=== PATIENT | male | born 1955 | race Caucasian/White ===

== ENCOUNTER 2024-03-11 12:24 | Inpatient (IN) ==
[2024-03-11 13:07] LABS: ABS Basophils 0.1 10^3/uL (0.0-0.1); ABS Eosinophils 0.5 10^3/uL (0.0-0.5); ABS Lymphocytes 1.1 10^3/uL (1.0-4.8); ABS Monocytes 0.4 10^3/uL (0.0-1.1); ABS Neutrophils 7.1 10^3/uL (1.5-7.6); ABS Nucleated RBC 0.01 10^3/ul; Eosinophil % 5.8 %; Hematocrit 33.3 % (38-53); Hemoglobin 11.3 g/dL (13.2-16.3); Lymphocyte % 11.6 %; Mean Corpuscular Hemoglobin 31.7 pg (27-33); Mean Corpuscular Hgb Conc 33.9 g/dL (31-36); Mean Corpuscular Volume 93.5 fL (80-97); Nucleated Red Blood Cells % 0.1 %/100WBC (0.0-0.8); Platelet Count 172 10^3/uL (150-450); Red Blood Count 3.56 10^6/uL (4.06-5.63); Red Cell Distribution Width 14.8 % (12-17); White Blood Count 9.2 10^3/uL (3.6-10.2)
[2024-03-11 13:52] LABS: High Sens Troponin Baseline 109 pg/mL (<20)
[2024-03-11 14:06] LABS: ALT 18 U/L (7-52); Albumin 4.3 g/dL (3.2-5.2); Albumin/Globulin Ratio 1.5 (1-3); Alkaline Phosphatase 94 U/L (35-149); Blood Urea Nitrogen 57 mg/dL (6-24); C Reactive Protein 2.64 mg/L (<8.01); CO2 Carbon Dioxide 17 mmol/L (22-32); Calcium 8.6 mg/dL (8.6-10.3); Chloride 109 mmol/L (101-111); Creatinine, Serum 2.83 mg/dL (0.67-1.17); Globulin 2.8 g/dL (2-4); Glucose 261 mg/dL (70-100); Sodium 136 mmol/L (135-145); Total Bilirubin 0.7 mg/dL (0.2-1.0); Total Protein 7.1 g/dL (6.4-8.9); eGFR CKD-EPI 23.2 (>60)
[2024-03-11 14:29] LABS: High Sensitivity Troponin 1 Hr 111 pg/mL (<20)
[2024-03-11] MEDS: Furosemide 40 mg/4 ml IV VIAL IV SLOW PU ONE (15:08)
[2024-03-11 15:20] LABS: Anion Gap 10 mmol/L (2-16)
[2024-03-11 16:35] LABS: Potassium Redraw 5.4 mmol/L (3.5-5.0)
[2024-03-11] MEDS ORDERED: Dextrose 50% Syringe 50 ml 25 GM/50 ML SYRINGE IV PUSH PRN (16:56)
[2024-03-11] MEDS ORDERED: Metoprolol Tartrate 5 mg VIAL 5 ml VIAL (1 mg/ml) IV PRN (16:57)
[2024-03-11] MEDS: Labetalol IV 5 MG/ML 20 ml VIAL IV PUSH ONE (17:03)
[2024-03-11 18:08] LABS: TSH Ultra Thyroid Stim Horm 6.81 mcIU/mL (0.34-5.60)
[2024-03-11 18:16] LABS: Ferritin 50.6 ng/mL (24-336)
[2024-03-11 18:19] LABS: Folate 12.06 ng/mL (5.90-24.80)
[2024-03-11] MEDS: Insulin GLARGINE 100 un/ml 10 ml VIAL SUBCUT SCH (21:11)
[2024-03-12 06:12] LABS: ABS Basophils 0.1 10^3/uL (0.0-0.1); ABS Eosinophils 0.2 10^3/uL (0.0-0.5); ABS Lymphocytes 1.2 10^3/uL (1.0-4.8); ABS Monocytes 0.5 10^3/uL (0.0-1.1); ABS Neutrophils 6.7 10^3/uL (1.5-7.6); ABS Nucleated RBC 0.01 10^3/ul; Hematocrit 33.6 % (38-53); Hemoglobin 11.2 g/dL (13.2-16.3); Mean Corpuscular Hemoglobin 31.4 pg (27-33); Mean Corpuscular Hgb Conc 33.4 g/dL (31-36); Mean Corpuscular Volume 93.9 fL (80-97); Mean Platelet Volume 10.3 fL (7.5-11.2); Nucleated Red Blood Cells % 0.1 %/100WBC (0.0-0.8); Platelet Count 191 10^3/uL (150-450); Red Blood Count 3.58 10^6/uL (4.06-5.63); Red Cell Distribution Width 14.9 % (12-17); White Blood Count 8.6 10^3/uL (3.6-10.2)
[2024-03-12 06:33] LABS: Calcium 8.8 mg/dL (8.6-10.3); Creatinine, Serum 3.2 mg/dL (0.67-1.17); Magnesium 1.6 mg/dL (1.9-2.7); Potassium 5.3 mmol/L (3.5-5.0); eGFR CKD-EPI 20.1 (>60)
[2024-03-12] MEDS ORDERED: Calcium Carb (TUMS) 500 mg CHEW TAB PO PRN (09:30)
[2024-03-12] MEDS: Magnesium Sulfate 2 gm BAG 2 GM/50 ML BAG IVPB ONE (12:28)
[2024-03-13 05:29] LABS: ABS Basophils 0.1 10^3/uL (0.0-0.1); ABS Eosinophils 0.2 10^3/uL (0.0-0.5); ABS Lymphocytes 1.1 10^3/uL (1.0-4.8); ABS Monocytes 0.6 10^3/uL (0.0-1.1); ABS Neutrophils 7.3 10^3/uL (1.5-7.6); ABS Nucleated RBC 0.01 10^3/ul; Eosinophil % 2.6 %; Hemoglobin 11.7 g/dL (13.2-16.3); Lymphocyte % 11.7 %; Mean Corpuscular Hgb Conc 33.3 g/dL (31-36); Mean Corpuscular Volume 93.1 fL (80-97); Mean Platelet Volume 9.6 fL (7.5-11.2); Nucleated Red Blood Cells % 0.1 %/100WBC (0.0-0.8); Platelet Count 215 10^3/uL (150-450); Red Blood Count 3.76 10^6/uL (4.06-5.63); Red Cell Distribution Width 14.3 % (12-17); White Blood Count 9.4 10^3/uL (3.6-10.2)
[2024-03-13 05:58] LABS: Calcium 8.6 mg/dL (8.6-10.3); Creatinine, Serum 3.04 mg/dL (0.67-1.17); Magnesium 1.9 mg/dL (1.9-2.7); Potassium 4.8 mmol/L (3.5-5.0); eGFR CKD-EPI 21.3 (>60)
[2024-03-13 16:16] LABS: Free T4 0.79 ng/dL (0.61-1.12)
[2024-03-14] MEDS: Empagliflozin 25 MG TAB PO SCH (07:19)
[2024-03-14] MEDS ORDERED: fentaNYL 100 mcg/2 ml 50 MCG/ML VIAL ONE (08:07)
[2024-03-14] MEDS ORDERED: Naloxone 0.4 mg VIAL 0.4 mg/ml 1 ml VIAL ONE (08:07)
[2024-03-14] MEDS ORDERED: Flumazenil 0.5 mg/5 ml 0.1 MG/ML 5 ml VIAL ONE (08:07)
[2024-03-14] MEDS ORDERED: Midazolam 5 mg/5 ml VIAL 1 mg/ml 5 ml VIAL (5 mg) ONE (08:08)
[2024-03-14 10:21] LABS: Free T3 2.51 pg/mL (2.5-3.9)
[2024-03-14 10:24] LABS: Ferritin 43.6 ng/mL (24-336)
[2024-03-14 11:45] LABS: HDL Cholesterol 29.2 mg/dL
[2024-03-14 13:36] LABS: Calcium 8.3 mg/dL (8.6-10.3); Creatinine, Serum 3.4 mg/dL (0.67-1.17); Potassium 4.5 mmol/L (3.5-5.0); eGFR CKD-EPI 18.6 (>60)
[2024-03-14] MEDS: Furosemide 40 mg/4 ml IV VIAL IV ONE (14:05)
[2024-03-14] MEDS: Furosemide 20 mg/2 ml IV VIAL IV ONE (15:24)
[2024-03-14 16:08] LABS: Urine Appearance Clear; Urine Bacteria Absent /HPF (Absent); Urine Bilirubin Negative (Negative); Urine Blood Trace (Negative); Urine Color Light-Yellow; Urine Glucose 4+ (>=1000 mg/dL) (Negative); Urine Ketones Negative (Negative); Urine Nitrite Negative (Negative); Urine Protein 1+ (>=30 mg/dL) (Negative); Urine Red Blood Cell Trace(0-2/hpf) /HPF (0-Trace); Urine Urobilinogen Negative (Negative); Urine White Blood Cell Absent /HPF (0-Trace); Urine pH 5.5 (5.0-8.0)
[2024-03-14 19:46] LABS: UR Microalbumin (mg/L) 242.5 mg/L; Urine Creatinine 20.98 mg/dL; Urine Microalbumin/Creatinine 1155.8 mcg/mg (<31)
[2024-03-14 20:33] LABS: Urine Creatinine Concentration 20.71 mg/dL (20.00-370.00)
[2024-03-14 23:40] LABS: Anaplasma phagocytophilum Negative (Negative); B. miyamotoi PCR, B Negative (Negative); Babesia divergens/MO-1 Negative (Negative); Babesia ducani Negative (Negative); Ehrlichia chaffeensis Negative (Negative); Ehrlichia ewingii/canis Negative (Negative); Ehrlichia muris eauclairensis Negative (Negative)
[2024-03-15 07:58] LABS: Calcium 8.3 mg/dL (8.6-10.3); Creatinine, Serum 3.65 mg/dL (0.67-1.17); Potassium 4.2 mmol/L (3.5-5.0); eGFR CKD-EPI 17.1 (>60)
[2024-03-15 09:07] LABS: Magnesium 1.7 mg/dL (1.9-2.7)
[2024-03-15] MEDS ORDERED: Midazolam 5 mg/5 ml VIAL 1 mg/ml 5 ml VIAL (5 mg) ONE (15:05)
[2024-03-15] MEDS ORDERED: Flumazenil 0.5 mg/5 ml 0.1 MG/ML 5 ml VIAL ONE (15:05)
[2024-03-15] MEDS ORDERED: Naloxone 0.4 mg VIAL 0.4 mg/ml 1 ml VIAL ONE (15:05)
[2024-03-15] MEDS ORDERED: fentaNYL 100 mcg/2 ml 50 MCG/ML VIAL ONE (15:05)
[2024-03-15] MEDS: fentaNYL 100 mcg/2 ml 50 MCG/ML VIAL IV SLOW PU ONE (16:34)
[2024-03-15] MEDS: Midazolam 10 mg/10 ml VIAL 1 mg/ml 10 ml VIAL (10 mg) IV SLOW PU ONE (16:35)
[2024-03-15] MEDS ORDERED: Dextrose 50% Syringe 50 ml 25 GM/50 ML SYRINGE IV PUSH PRN (22:54)
[2024-03-16 05:09] LABS: ABS Basophils 0.1 10^3/uL (0.0-0.1); ABS Eosinophils 0.7 10^3/uL (0.0-0.5); ABS Lymphocytes 1.3 10^3/uL (1.0-4.8); ABS Monocytes 0.8 10^3/uL (0.0-1.1); ABS Neutrophils 5.1 10^3/uL (1.5-7.6); ABS Nucleated RBC 0.01 10^3/ul; Eosinophil % 8.8 %; Hematocrit 31.9 % (38-53); Lymphocyte % 16.2 %; Mean Corpuscular Hemoglobin 31.7 pg (27-33); Mean Corpuscular Hgb Conc 34.5 g/dL (31-36); Mean Corpuscular Volume 91.9 fL (80-97); Mean Platelet Volume 9.2 fL (7.5-11.2); Nucleated Red Blood Cells % 0.1 %/100WBC (0.0-0.8); Platelet Count 193 10^3/uL (150-450); Red Blood Count 3.47 10^6/uL (4.06-5.63); Red Cell Distribution Width 14.3 % (12-17)
[2024-03-16 05:24] LABS: Calcium 8.6 mg/dL (8.6-10.3); Creatinine, Serum 3.53 mg/dL (0.67-1.17); Magnesium 1.6 mg/dL (1.9-2.7); Potassium 4.1 mmol/L (3.5-5.0); eGFR CKD-EPI 17.8 (>60)
[2024-03-16] MEDS: Insulin GLARGINE 100 un/ml 10 ml VIAL SUBCUT SCH (08:26)
[2024-03-16] MEDS: Magnesium Sulfate 2 gm BAG 2 GM/50 ML BAG IVPB ONE (08:27)
[2024-03-16 13:55] VITALS: BP 136/84
[2024-03-18 15:30] LABS: Kappa Free Light Chain 6.59 mg/dL; Lambda Free Light Chain, S 3.89 mg/dL
[2024-03-21 09:02] LABS: Flag, M-protein Isotype Negative (Negative); Immunoglobulin A (IgA), S 119 mg/dL (61 - 356); Immunoglobulin G (IgG), S 940 mg/dL (767 - 1590); Immunoglobulin M (IgM), S 60 mg/dL (37 - 286)
== END 2024-03-16 15:51 | disposition home or self-care (01) | DRG 308 ==
LOC: EDHOLD 12:24 → ED 12:24 → MEDTELE 21:07 → SUATTDRO 03-13 10:49
PROVIDERS: ADMIT Hospitalist; ATTEND Internal Medicine

== ENCOUNTER 2024-11-10 11:17 | Inpatient (IN) ==
[2024-11-10 14:57] LABS: ABS Eosinophils 0.3 10^3/uL (0.0-0.5); ABS Lymphocytes 0.8 10^3/uL (1.0-4.8); ABS Monocytes 0.7 10^3/uL (0.0-1.1); Eosinophil % 3.8 %; Hematocrit 25.3 % (38-53); Hemoglobin 8.8 g/dL (13.2-16.3); Lymphocyte % 10.3 %; Mean Corpuscular Hemoglobin 31.6 pg (27-33); Mean Corpuscular Hgb Conc 34.8 g/dL (31-36); Mean Corpuscular Volume 90.7 fL (80-97); Mean Platelet Volume 8.7 fL (7.5-11.2); Platelet Count 179 10^3/uL (150-450); Red Blood Count 2.78 10^6/uL (4.06-5.63); Red Cell Distribution Width 13.5 % (12-17); White Blood Count 7.8 10^3/uL (3.6-10.2)
[2024-11-10 15:22] LABS: High Sens Troponin Baseline 64 pg/mL (<20)
[2024-11-10 15:23] LABS: ALT 18 U/L (7-52); AST 18 U/L (13-39); Albumin 4.5 g/dL (3.5-5.7); Albumin/Globulin Ratio 1.5 (1-3); Alkaline Phosphatase 104 U/L (35-149); Anion Gap 10 mmol/L (2-16); Blood Urea Nitrogen 59 mg/dL (6-24); CO2 Carbon Dioxide 24 mmol/L (22-32); Calcium 8.1 mg/dL (8.6-10.3); Chloride 104 mmol/L (101-111); Creatinine, Serum 4.47 mg/dL (0.67-1.17); Glucose 138 mg/dL (70-100); Potassium 3.9 mmol/L (3.5-5.0); Sodium 138 mmol/L (135-145); Total Bilirubin 1.2 mg/dL (0.2-1.0); Total Protein 7.5 g/dL (6.4-8.9); eGFR CKD-EPI 13.3 (>60)
[2024-11-10 16:14] LABS: Urine Appearance Clear; Urine Bilirubin Negative (Negative); Urine Blood 1+ (Negative); Urine Color Colorless; Urine Glucose Negative (Negative); Urine Ketones Negative (Negative); Urine Nitrite Negative (Negative); Urine Protein 1+ (>=30 mg/dL) (Negative); Urine Urobilinogen Negative (Negative)
[2024-11-10 16:23] LABS: Urine Bacteria 1+ /HPF (Absent); Urine Red Blood Cell 1+(3-5/hpf) /HPF (0-Trace); Urine White Blood Cell Trace(0-5/hpf) /HPF (0-Trace)
[2024-11-10 16:33] LABS: High Sensitivity Troponin 1 Hr 63 pg/mL (<20)
[2024-11-10 21:03] LABS: % Iron Saturation 13 % (15-55); .Transferrin 247 mg/dL (203-362); Iron 45 ug/dL (50-212); Total Iron Binding Capacity 346 mcg/dL (250-450); Unsaturated Iron Binding 301 ug/dL
[2024-11-10] MEDS ORDERED: Dextrose 50% Syringe 50 ml 25 GM/50 ML SYRINGE IV PUSH PRN (21:03)
[2024-11-10 21:23] LABS: Ferritin 98.5 ng/mL (24-336)
[2024-11-10 21:26] LABS: Folate > 20.00 ng/mL (5.90-24.80)
[2024-11-10 21:27] LABS: Vitamin B12 589 pg/mL (180-914)
[2024-11-10 22:09] LABS: Hepatitis B Surface Antigen Nonreactive (Nonreactive)
[2024-11-10 22:14] LABS: Hepatitis A Ab IgM Negative (Negative)
[2024-11-10 22:15] LABS: Hepatitis B Core IgM Nonreactive (Nonreactive)
[2024-11-10 22:42] LABS: Hepatitis C Antibody Reactive (Negative)
[2024-11-10 23:12] LABS: TSH Ultra Thyroid Stim Horm 7.89 mcIU/mL (0.34-5.60)
[2024-11-11 06:03] LABS: ABS Eosinophils 0.4 10^3/uL (0.0-0.5); ABS Monocytes 0.7 10^3/uL (0.0-1.1); ABS Neutrophils 4.8 10^3/uL (1.5-7.6); ABS Nucleated RBC 0.01 10^3/ul; Eosinophil % 5.9 %; Hematocrit 23.8 % (38-53); Hemoglobin 8.4 g/dL (13.2-16.3); Lymphocyte % 14.1 %; Mean Corpuscular Hemoglobin 31.7 pg (27-33); Mean Corpuscular Hgb Conc 35.4 g/dL (31-36); Mean Corpuscular Volume 89.5 fL (80-97); Mean Platelet Volume 8.8 fL (7.5-11.2); Nucleated Red Blood Cells % 0.1 %/100WBC (0.0-0.8); Platelet Count 166 10^3/uL (150-450); Red Blood Count 2.65 10^6/uL (4.06-5.63); Red Cell Distribution Width 13.5 % (12-17); White Blood Count 6.9 10^3/uL (3.6-10.2)
[2024-11-11 06:22] LABS: Albumin 3.9 g/dL (3.5-5.7); Albumin/Globulin Ratio 1.4 (1-3); Calcium 7.5 mg/dL (8.6-10.3); Creatinine, Serum 4.48 mg/dL (0.67-1.17); Direct Bilirubin 0.3 mg/dL (0.03-0.18); Globulin 2.8 g/dL (2-4); Indirect Bilirubin 0.6 mg/dL (0.3-1.0); Magnesium 1.7 mg/dL (1.9-2.7); Potassium 3.9 mmol/L (3.5-5.0); Total Bilirubin 0.9 mg/dL (0.2-1.0); Total Protein 6.7 g/dL (6.4-8.9); eGFR CKD-EPI 13.3 (>60)
[2024-11-11] MEDS: Magnesium Sulfate 2 gm BAG 2 GM/50 ML BAG IVPB ONE ×2 (08:15→21:37)
[2024-11-11 08:48] LABS: T4, Total 13.16 mcg/dL (6.09-12.23)
[2024-11-11] MEDS ORDERED: NS 0.9% 1000 ml BAG 100 ML IV PRN (09:10)
[2024-11-11] MEDS ORDERED: NS 0.9% 1000 ml BAG 200 ML IV PRN (09:10)
[2024-11-11] MEDS ORDERED: Albumin Human 25% 25 GM/100 ML BTL IV PRN (09:10)
[2024-11-11] MEDS: Insulin GLARGINE 100 un/ml 10 ml VIAL SUBCUT SCH (09:27)
[2024-11-11] MEDS: cloNIDine 0.1 MG PATCH 0.1 MG/24 HR 7 DAY PATCH TRANSDERM SCH (09:27)
[2024-11-11] MEDS: Sulfur Hexaflouride MICROSPHR 25 MG VIAL IV PRN (11:14)
[2024-11-11] MEDS: Clindamycin 600 MG/D5W BAG 600 MG/50 ML BAG IV ONE (12:37)
[2024-11-11] MEDS ORDERED: Heparin 1,000 UNIT/ML 10 ml (10,000 UNITS) CATHLAB/DIALYSIS ONE (13:51)
[2024-11-11] MEDS ORDERED: Lidocaine 1% VIAL 10 MG/ML 30 ML VIAL ONE (13:51)
[2024-11-11] MEDS ORDERED: Heparin 2 UNITS/ML 1000 mls 1,000 ML IV ONE (13:51)
[2024-11-11] MEDS ORDERED: fentaNYL 100 mcg/2 ml 50 MCG/ML VIAL ONE (13:58)
[2024-11-11] MEDS ORDERED: Midazolam 5 mg/5 ml VIAL 1 mg/ml 5 ml VIAL (5 mg) ONE (13:58)
[2024-11-11] MEDS: Heparin 1,000 UNIT/ML 10 ml (10,000 UNITS) CATHLAB/DIALYSIS DIALYSIS PRN (15:00)
[2024-11-11] MEDS: Acetaminophen IV 1 GM/100ML 1,000 MG/100 ML BAG IV PRN (20:03)
[2024-11-12 06:16] LABS: ABS Eosinophils 0.4 10^3/uL (0.0-0.5); ABS Lymphocytes 1.1 10^3/uL (1.0-4.8); ABS Monocytes 1.1 10^3/uL (0.0-1.1); Eosinophil % 6.2 %; Hematocrit 23.2 % (38-53); Hemoglobin 8.4 g/dL (13.2-16.3); Lymphocyte % 16.7 %; Mean Corpuscular Hemoglobin 32.6 pg (27-33); Mean Corpuscular Hgb Conc 36.1 g/dL (31-36); Mean Corpuscular Volume 90.1 fL (80-97); Mean Platelet Volume 8.9 fL (7.5-11.2); Platelet Count 175 10^3/uL (150-450); Red Blood Count 2.58 10^6/uL (4.06-5.63); White Blood Count 6.6 10^3/uL (3.6-10.2)
[2024-11-12 06:47] LABS: Calcium 7.7 mg/dL (8.6-10.3); Creatinine, Serum 3.98 mg/dL (0.67-1.17); Potassium 3.8 mmol/L (3.5-5.0); eGFR CKD-EPI 15.3 (>60)
[2024-11-12] MEDS: Ferric Gluconate IV 125 MG in NS 0.9% 100 ml BAG 100 ML IVPB ONE (20:50)
[2024-11-13 07:03] LABS: Creatinine, Serum 4.11 mg/dL (0.67-1.17); Magnesium 1.8 mg/dL (1.9-2.7); Phosphorus 4.3 mg/dL (2.5-5.0); Potassium 4.2 mmol/L (3.5-5.0); eGFR CKD-EPI 14.8 (>60)
[2024-11-13 07:22] LABS: ABS Eosinophils 0.3 10^3/uL (0.0-0.5); ABS Monocytes 1.3 10^3/uL (0.0-1.1); ABS Neutrophils 4.8 10^3/uL (1.5-7.6); ABS Nucleated RBC 0.03 10^3/ul; Eosinophil % 4.7 %; Hematocrit 24.3 % (38-53); Hemoglobin 8.4 g/dL (13.2-16.3); Lymphocyte % 13.6 %; Mean Corpuscular Hemoglobin 31.9 pg (27-33); Mean Corpuscular Hgb Conc 34.4 g/dL (31-36); Mean Corpuscular Volume 92.9 fL (80-97); Mean Platelet Volume 8.4 fL (7.5-11.2); Nucleated Red Blood Cells % 0.4 %/100WBC (0.0-0.8); Platelet Count 204 10^3/uL (150-450); Red Blood Count 2.62 10^6/uL (4.06-5.63); Red Cell Distribution Width 13.4 % (12-17); White Blood Count 7.5 10^3/uL (3.6-10.2)
[2024-11-13] MEDS: Insulin GLARGINE 100 un/ml 10 ml VIAL SUBCUT SCH (08:01)
[2024-11-14 06:16] LABS: Hematocrit 24.2 % (38-53); Hemoglobin 8.5 g/dL (13.2-16.3); Mean Corpuscular Hemoglobin 31.7 pg (27-33); Mean Corpuscular Hgb Conc 35.1 g/dL (31-36); Mean Corpuscular Volume 90.4 fL (80-97); Mean Platelet Volume 8.4 fL (7.5-11.2); Platelet Count 183 10^3/uL (150-450); Red Blood Count 2.68 10^6/uL (4.06-5.63); Red Cell Distribution Width 13.2 % (12-17); White Blood Count 9.1 10^3/uL (3.6-10.2)
[2024-11-14 07:00] LABS: Calcium 7.8 mg/dL (8.6-10.3); Creatinine, Serum 5.16 mg/dL (0.67-1.17); Magnesium 1.6 mg/dL (1.9-2.7); Phosphorus 5.2 mg/dL (2.5-5.0); Potassium 3.9 mmol/L (3.5-5.0); eGFR CKD-EPI 11.2 (>60)
[2024-11-14] MEDS: Insulin GLARGINE 100 un/ml 10 ml VIAL SUBCUT SCH (09:05)
[2024-11-14] MEDS ORDERED: FERRIC GLUCONATE IV PUSH ONE (10:11)
[2024-11-14] MEDS ORDERED: Aminophylline 25 MG/ML VIAL ONE (10:44)
[2024-11-14] MEDS ORDERED: Regadenoson 0.4 MG/5 ML SYRINGE ONE (10:44)
[2024-11-14] MEDS: Ferric Gluconate IV 125 MG in NS 0.9% 100 ML IVPB ONE (12:46)
[2024-11-14] MEDS: Magnesium Sulfate 2 gm BAG 2 GM/50 ML BAG IVPB ONE (21:15)
[2024-11-15 05:33] LABS: ABS Basophils 0.1 10^3/uL (0.0-0.1); ABS Eosinophils 0.4 10^3/uL (0.0-0.5); ABS Lymphocytes 1.1 10^3/uL (1.0-4.8); ABS Monocytes 1.3 10^3/uL (0.0-1.1); ABS Neutrophils 6.9 10^3/uL (1.5-7.6); ABS Nucleated RBC 0.01 10^3/ul; Eosinophil % 4.5 %; Hematocrit 25.9 % (38-53); Hemoglobin 9.3 g/dL (13.2-16.3); Lymphocyte % 11.7 %; Mean Corpuscular Hemoglobin 32.5 pg (27-33); Mean Corpuscular Hgb Conc 35.8 g/dL (31-36); Mean Corpuscular Volume 90.7 fL (80-97); Mean Platelet Volume 8.6 fL (7.5-11.2); Nucleated Red Blood Cells % 0.1 %/100WBC (0.0-0.8); Platelet Count 183 10^3/uL (150-450); Red Blood Count 2.86 10^6/uL (4.06-5.63); White Blood Count 9.8 10^3/uL (3.6-10.2)
[2024-11-15 05:55] LABS: Creatinine, Serum 4.36 mg/dL (0.67-1.17); Magnesium 2.3 mg/dL (1.9-2.7); Phosphorus 4.6 mg/dL (2.5-5.0); Potassium 3.7 mmol/L (3.5-5.0); eGFR CKD-EPI 13.7 (>60)
[2024-11-15] MEDS ORDERED: fentaNYL 100 mcg/2 ml 50 MCG/ML VIAL ONE (09:15)
[2024-11-15] MEDS ORDERED: niCARdipine 0.1MG/ML IVPREMIX 20 MG/200 ML BAG IV ONE (09:15)
[2024-11-15] MEDS: Ferric Gluconate IV 125 MG in NS 0.9% 100 ml BAG 100 ML IVPB SCH (09:15)
[2024-11-15] MEDS ORDERED: Lidocaine 1% MPF 5 ML VIAL ONE (09:15)
[2024-11-15] MEDS ORDERED: Heparin 1,000 UNIT/ML 10 ml (10,000 UNITS) CATHLAB/DIALYSIS ONE (09:15)
[2024-11-15] MEDS ORDERED: Midazolam 5 mg/5 ml VIAL 1 mg/ml 5 ml VIAL (5 mg) ONE (09:15)
[2024-11-15] MEDS ORDERED: Iodixanol 320 (CONTRAST) 100 ML SDV ONE (09:19)
[2024-11-15] MEDS ORDERED: Heparin 2 UNITS/ML 1000 mls 3,000 ML IV ONE (09:34)
[2024-11-15] MEDS ORDERED: nitroGLYCERIN DRIP 50,000 MCG/250 ML BTL ONE (09:34)
[2024-11-15] MEDS: Midazolam 10 mg/10 ml VIAL 1 mg/ml 10 ml VIAL (10 mg) IV SLOW PU ONE (19:59)
[2024-11-15] MEDS: Insulin GLARGINE 100 un/ml 10 ml VIAL SUBCUT ONE (19:59)
[2024-11-15] MEDS: fentaNYL 100 mcg/2 ml 50 MCG/ML VIAL IV SLOW PU ONE (20:00)
[2024-11-16 06:50] LABS: Hematocrit 25.1 % (38-53); Mean Corpuscular Hemoglobin 32.3 pg (27-33); Mean Corpuscular Hgb Conc 35.8 g/dL (31-36); Mean Corpuscular Volume 90.2 fL (80-97); Mean Platelet Volume 8.4 fL (7.5-11.2); Platelet Count 207 10^3/uL (150-450); Red Blood Count 2.78 10^6/uL (4.06-5.63); Red Cell Distribution Width 13.4 % (12-17); White Blood Count 11.2 10^3/uL (3.6-10.2)
[2024-11-16 07:44] LABS: Calcium 7.8 mg/dL (8.6-10.3); Creatinine, Serum 5.59 mg/dL (0.67-1.17); Magnesium 2.1 mg/dL (1.9-2.7); Potassium 3.8 mmol/L (3.5-5.0); eGFR CKD-EPI 10.2 (>60)
[2024-11-16 08:46] LABS: ABS Basophils 0.1 10^3/uL (0.0-0.1); ABS Eosinophils 0.6 10^3/uL (0.0-0.5); ABS Lymphocytes 1.4 10^3/uL (1.0-4.8); ABS Monocytes 1.6 10^3/uL (0.0-1.1); ABS Neutrophils 7.5 10^3/uL (1.5-7.6); ABS Nucleated RBC 0.01 10^3/ul; Eosinophil % 5.8 %; Lymphocyte % 12.4 %; Nucleated Red Blood Cells % 0.1 %/100WBC (0.0-0.8)
[2024-11-17 06:22] LABS: Hematocrit 26.8 % (38-53); Hemoglobin 9.6 g/dL (13.2-16.3); Mean Corpuscular Hemoglobin 32.6 pg (27-33); Mean Corpuscular Hgb Conc 35.8 g/dL (31-36); Mean Platelet Volume 8.5 fL (7.5-11.2); Platelet Count 195 10^3/uL (150-450); Red Blood Count 2.94 10^6/uL (4.06-5.63); Red Cell Distribution Width 13.3 % (12-17); White Blood Count 11.6 10^3/uL (3.6-10.2)
[2024-11-17 06:59] LABS: Calcium 7.9 mg/dL (8.6-10.3); Creatinine, Serum 6.29 mg/dL (0.67-1.17); Magnesium 1.9 mg/dL (1.9-2.7); Potassium 4.3 mmol/L (3.5-5.0); eGFR CKD-EPI 8.9 (>60)
[2024-11-17 07:04] LABS: ABS Basophils 0.1 10^3/uL (0.0-0.1); ABS Eosinophils 0.6 10^3/uL (0.0-0.5); ABS Lymphocytes 1.2 10^3/uL (1.0-4.8); ABS Monocytes 1.7 10^3/uL (0.0-1.1); ABS Nucleated RBC 0.03 10^3/ul; Lymphocyte % 10.4 %; Nucleated Red Blood Cells % 0.3 %/100WBC (0.0-0.8)
[2024-11-17] MEDS: Insulin GLARGINE 100 un/ml 10 ml VIAL SUBCUT SCH ×2 (18:27→20:37)
[2024-11-18 06:47] LABS: ABS Eosinophils 0.4 10^3/uL (0.0-0.5); ABS Lymphocytes 1.1 10^3/uL (1.0-4.8); ABS Monocytes 1.2 10^3/uL (0.0-1.1); ABS Neutrophils 6.1 10^3/uL (1.5-7.6); ABS Nucleated RBC 0.02 10^3/ul; Eosinophil % 4.8 %; Hematocrit 28.3 % (38-53); Hemoglobin 10.3 g/dL (13.2-16.3); Lymphocyte % 12.5 %; Mean Corpuscular Hgb Conc 36.3 g/dL (31-36); Mean Platelet Volume 8.3 fL (7.5-11.2); Nucleated Red Blood Cells % 0.2 %/100WBC (0.0-0.8); Platelet Count 202 10^3/uL (150-450); Red Blood Count 3.11 10^6/uL (4.06-5.63); Red Cell Distribution Width 13.8 % (12-17); White Blood Count 8.9 10^3/uL (3.6-10.2)
[2024-11-18 07:11] LABS: Calcium 8.2 mg/dL (8.6-10.3); Creatinine, Serum 5.79 mg/dL (0.67-1.17); Magnesium 1.8 mg/dL (1.9-2.7); Phosphorus 5.1 mg/dL (2.5-5.0); Potassium 4.3 mmol/L (3.5-5.0); eGFR CKD-EPI 9.8 (>60)
[2024-11-18] MEDS ORDERED: Rocuronium 50 mg VIAL 10 mg/ml 5 ml VIAL (50 mg) ONE ×2 (14:00→14:28)
[2024-11-18] MEDS ORDERED: fentaNYL 100 mcg/2 ml 50 MCG/ML VIAL ONE ×2 (14:00→14:26)
[2024-11-18] MEDS ORDERED: Lidocaine 2% PF 5 ML VIAL ONE (14:00)
[2024-11-18] MEDS ORDERED: Midazolam 2 mg/2 ml VIAL 1 mg/ml 2 ml VIAL (2 mg) ONE (14:00)
[2024-11-18] MEDS ORDERED: Propofol 10 MG/ML 20 ML BTL ONE (14:00)
[2024-11-18] MEDS ORDERED: ceFAZolin VIAL 2 GM in NS 0.9% 100 ml BAG 100 ML IVPB ONE (14:08)
[2024-11-18] MEDS ORDERED: ceFAZolin 2 GM PREMIX 2 GM/50 ML BAG ONE (14:21)
[2024-11-18] MEDS ORDERED: Ondansetron 4 mg VIAL 2 MG/ML 2 ml VIAL ONE (15:06)
[2024-11-18] MEDS ORDERED: Bupivacaine 0.25% SDV PF 10 ML VIAL INJ ONE (15:17)
[2024-11-18] MEDS ORDERED: Heparin *DIALYSIS* ONLY 1,000 UNITS/ML VIAL ONE (15:18)
[2024-11-18] MEDS: Insulin GLARGINE 100 un/ml 10 ml VIAL SUBCUT SCH (21:41)
[2024-11-19 06:07] LABS: ABS Basophils 0.1 10^3/uL (0.0-0.1); ABS Eosinophils 0.4 10^3/uL (0.0-0.5); ABS Lymphocytes 0.6 10^3/uL (1.0-4.8); ABS Neutrophils 8.4 10^3/uL (1.5-7.6); Eosinophil % 3.7 %; Hematocrit 30.1 % (38-53); Hemoglobin 10.8 g/dL (13.2-16.3); Lymphocyte % 5.3 %; Mean Corpuscular Hemoglobin 32.9 pg (27-33); Mean Corpuscular Hgb Conc 35.9 g/dL (31-36); Mean Corpuscular Volume 91.7 fL (80-97); Mean Platelet Volume 8.8 fL (7.5-11.2); Platelet Count 188 10^3/uL (150-450); Red Blood Count 3.28 10^6/uL (4.06-5.63); Red Cell Distribution Width 13.9 % (12-17); White Blood Count 10.4 10^3/uL (3.6-10.2)
[2024-11-19 06:25] LABS: Calcium 8.2 mg/dL (8.6-10.3); Creatinine, Serum 6.39 mg/dL (0.67-1.17); Magnesium 1.7 mg/dL (1.9-2.7); Potassium 4.1 mmol/L (3.5-5.0); eGFR CKD-EPI 8.7 (>60)
[2024-11-19 14:23] VITALS: BP 121/72
== END 2024-11-19 16:45 | disposition home or self-care (01) | DRG 981 ==
LOC: ED 11:17 → SUATTDRO 19:34 → EDHOLD 19:34 → MED 22:50 → MEDTELE 11-15 12:27 → MED 11-18 18:48
PROVIDERS: ADMIT Student in an Organized Health Care Education/Training Program; ATTEND Student in an Organized Health Care Education/Training Program